=== PATIENT | female | born 1985 | race Caucasian/White ===

== ENCOUNTER → 2020-03-04 | Outpatient (CLI) | payer BC ==
[~2020-03-04] VITALS: Ht 175.3 cm; Wt 69.7 kg
[~2020-03-04] MED LIST: NABUMETONE 500500 M2 PO; NAPROXEN500 MG PO
--- NOTE | ~2020-03-04 | HPC ---
[facility] [place] [address] PAIN MANAGEMENT CONSULTATION Name: LAURA MANRIQUEZ Room #: REG Otto ..#: [id number] Admission: 03/04/20 Attend Phys: Yehuda Garcia DO Discharge: Date of : 85 Report #: [id number] THIS REPORT FOR: cc: BRODY GOMEZ Physician not on staff Yehuda Garcia DO ~ DATE OF SERVICE: 03/04/2020 REFERRING PHYSICIAN: Geovanny Ballesteros MD CHIEF COMPLAINT: Axial back pain. HISTORY OF PRESENT ILLNESS: As you know, the patient is a very pleasant 34-year-old female who reports longstanding history of low back pain and upper buttock pain. She states that her pain intensified in 08/2018, but has been present prior to that timeframe. She trialled conservative treatment, but unfortunately, her symptoms did not show improvement. She sought evaluation through her primary care team, which ultimately sent the patient for imaging. After imaging was completed, the patient was then sent to see Neurosurgery to discuss options for surgical therapy. The patient was seen by Dr. Geovanny Ballesteros on 01/22/2020, diagnosed with lumbar spondylosis and facet arthropathy pain. She was then subsequently referred to our clinic to discuss interventional treatments and options for therapy to address facet arthropathy pain. The patient indicates her pain is continuous, steady and constant, describes the pain as aching and sharp. She places current pain score at 4/10, daily average of 6/10, worst pain has been is 8/10. The patient states that sitting, standing for any length of time greater than 20 minutes exacerbates symptoms, heat and cold compresses improve pain. She has been referred to our service to discuss treatment options for facet arthropathy pain. PAST MEDICAL HISTORY: Chronic back pain. PAST SURGICAL HISTORY: Tonsillectomy. SOCIAL HISTORY: The patient denies tobacco, IV or illicit drug use. Admits to approximately 1 alcoholic beverage per week. 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 She is not receiving disability income. She is not on disability benefits and she is not in litigation in regard to pain. She is unaccompanied at today's visit. REVIEW OF SYSTEMS: Positive for wearing corrective eyewear, frequent urination, nocturia, painful menses, chronic low back pain. All other review of systems negative per 12-point review of systems other than those listed in history of present illness. [facility] [address] [place] [address] PAIN MANAGEMENT CONSULTATION Name: LAURA MANRIQUEZ Room #: REG CL Kori.#: [id number] Admission: 03/04/20 Attend Phys: Yehuda Garcia DO Discharge: Date of : 85 Report #: [id number] ALLERGIES: No known drug allergies. CURRENT MEDICATIONS: Naproxen 500 mg dose p.r.n. cramping. IMAGING: MRI of the lumbar spine obtained 10/04/2018 shows mild disk space narrowing at L4-L5 and L5-S1 consistent with her age. There are normal appearing SI joints. There is mild degenerative spondylosis within the lumbar region. PHYSICAL EXAMINATION: VITAL SIGNS: Blood pressure 106/78, pulse 87, respiratory rate 18 and unlabored. The patient is 97% on room air. Height 5 feet 9 inches tall, weight 153.6 pounds and BMI calculated 22.7. GENERAL: Well-developed, well-nourished, well-hydrated 34-year-old female appearing her stated age. She is in no acute distress, awake, alert and oriented x 3. Current pain score 6/10. HEENT: Normocephalic, atraumatic. Pupils are equal and round. NEUROLOGIC: Speech is fluent. The patient is wearing a mask in compliance with COVID-19 regulations. LUNGS: Clear, no wheeze, rhonchi or rales. CARDIOVASCULAR: Regular. No appreciable gallop, no rub. ABDOMEN: Soft, nontender, nondistended, normal active bowel sounds. EXTREMITIES: Show no clubbing, no cyanosis, no edema. MUSCULOSKELETAL: The patient has palpatory tenderness over the paraspinal musculature of lower lumbar spine. No spinous process tenderness. Seated straight leg raising negative. Supine straight leg raising negative. Ramone's test is negative. Modified Gaenslen's positive for axial low back pain without radiation of symptoms. Lumbar provocation testing including extension, rotation and to a slight degree lateral flexion cause intensification of pain. Slight forward flexed lumbar spine improve symptoms mildly. Deep tendon reflexes equal and symmetrical at patella and Achilles, 2+/4. Muscle bulk and tone is equal and symmetrical in lower extremities. Ankle clonus negative. Babinski is negative. ASSESSMENT: 1. Lumbosacral spondylosis without radiculopathy. 2. Mild facet arthropathy of the lumbar spine. 3. Chronic low back pain. PLAN: 1. Based on today's physical exam and history the patient has provided, the description the patient uses in regard to pain as well as location of symptoms and those factors that probably gait pain, likely source of the patient's symptoms is the facet joints of the lumbar region. We discussed with the patient treatment options for mild facet arthropathy, the following was [facility] [address] [place] [address] PAIN MANAGEMENT CONSULTATION Name: LAURA MANRIQUEZ Room #: REG [facility]#: [id number] Admission: 03/04/20 Attend Phys: Yehuda Garcia DO Discharge: Date of : 85 Report #: [id number] discussed with the patient today after reviewing her imaging with her in its entirety. I was pleased to advise the patient only mild facet changes were noted. The mild changes in the disks were not contributory to her symptoms. After this discussion, we discussed treatment options. We discussed physical therapy, stretching exercises and core strengthening techniques as a treatment option. We discussed medication management, adjusting for a more effective nonsteroidal anti-inflammatory to take on initially 3 times a day basis with weaning of the medication once her symptoms do improve. We discussed the requested intra-articular facet injections to treat facet arthropathy pain. We also discussed medial branch nerve blocks and radiofrequency lesioning if all other treatment options are unsuccessful. After reviewing risks and benefits of all proposed treatment options, the patient chose to move forward with intraarticular facet injections. 2. The patient was advised that due to third constitution party payer restrictions, authorization would have to be obtained before the patient could undergo facet injections at the L4-L5 and L5-S1 level. We will begin the authorization process immediately. Once we have this authorization completed, we will contact the patient and have her return to undergo that injection. The patient was advised to make sure that her schedule is cleared from the day of procedure through the next day, so she can rest, relaxation and recover from the procedure itself. We will obtain this authorization as quickly as possible and contact the patient with our progress. 3. We have provided the patient a prescription of nabumetone 500 mg dose for which she is to take 3 times a day with meals. I have given the patient #90 tablets, advised her to take it as directed. She is to discontinue all other nonsteroidal anti-inflammatories in preference of the nabumetone. She will watch for dyspepsia, worsening of blood pressure, lower extremity edema. If she notes any side effects, discontinue immediately, call for further instructions. We will discuss efficacy at followup visit. 4. We wish to thank Dr. Ballesteros for the opportunity to see this patient in consultation. We will keep you apprised of response to treatment as we address mild facet arthropathy, address within the lumbar spine. Again, we wish to thank you for the opportunity to see this patient in consultation. By: [phone] Yehuda Garcia DO /nt
[2020-03-04 12:48] VITALS: BP 106/78
--- NOTE | 2020-03-04 12:50 | NUR ---
Pain Clinic Assessment: 1. History of Osteoarthritis: BACK History of Rheumatoid Arthritis: 2. Height: 5 ft. 9 in. 175.3 cm. Weight: 153.6 lb. oz. 69.672 kg. Patient's BMI: 22.7 3. Vital Signs: BP: 106/78 Pulse: 87 Resp: 18 Temp: 02 Sat: 97 ECG Mon: 4. Pain Intensity: 6 5. Fall Risk: Dizziness: N Needs help standing or walking: N Fallen in the last 3 months: N Fall risk comments: 6. Patient on Blood Thinner: 7. History of Hypertension: N 8. Opioid Therapy greater than 6 weeks: N Opiate Contract Signed: 9. Risk Assessment Tool Provided: 1-LOW RISK 10. Functional Assessment Tool: 11. Recreational Drug Use: Never Drug Type: Tobacco Use: Never Smoker Tobacco Type: Amount or Packs/day: How Many Years: Alcohol Use: Yes Frequency: Monthly Quant: 1
== END ==
LOC: PAIN 06:48
PROVIDERS: ATTEND Anesthesiology Pain Medicine
DX: M47.817 Spondylosis without myelopathy or radiculopathy, lumbosacral region (principal); G89.29 Other chronic pain; Z79.891 Long term (current) use of opiate analgesic

== ENCOUNTER → 2020-04-08 | Outpatient (CLI) | payer OTHER ==
[~2020-04-08] VITALS: Ht 175.3 cm; Wt 70.3 kg
[2020-04-08 11:08] VITALS: BP 108/72
--- NOTE | 2020-04-08 11:24 | NUR ---
Pain Clinic Assessment: 1. History of Osteoarthritis: BACK History of Rheumatoid Arthritis: 2. Height: 5 ft. 9 in. 175.3 cm. Weight: 155.0 lb. oz. 70.308 kg. Patient's BMI: 22.9 3. Vital Signs: BP: 108/72 Pulse: 85 Resp: 14 Temp: 02 Sat: 98 ECG Mon: 4. Pain Intensity: 6 5. Fall Risk: Dizziness: N Needs help standing or walking: N Fallen in the last 3 months: N Fall risk comments: 6. Patient on Blood Thinner: None 7. History of Hypertension: N 8. Opioid Therapy greater than 6 weeks: N Opiate Contract Signed: 9. Risk Assessment Tool Provided: 1-LOW RISK 10. Functional Assessment Tool: 11. Recreational Drug Use: Never Drug Type: Tobacco Use: Never Smoker Tobacco Type: Amount or Packs/day: How Many Years: Alcohol Use: Yes Frequency: Weekly Quant: 1
--- NOTE | 2020-04-15 08:06 | HPC ---
[facility] [place] [address] PAIN MANAGEMENT CONSULTATION Name: LAURA MANRIQUEZ Room #: REG Otto M.R.#: [id number] Admission: 04/08/20 Attend Phys: Yehuda Garcia DO Discharge: Date of : 85 Report #: [id number] THIS REPORT FOR: cc: BRODY GOMEZ Physician not on staff Yehuda Garcia DO ~ CHIEF COMPLAINT: Axial back pain. HISTORY OF PRESENT ILLNESS: As you know, the patient is a very pleasant 34-year-old female with longstanding history of low back pain, upper buttock pain. The pain intensified August 2018. No inciting injury or trauma. She was seen in consultation per the request of Dr. Ballesteros to discuss intra-articular facet injections to address facet arthropathy at L4-L5 and L5-S1, which was mild in nature. We trialled initially conservative treatment utilizing nabumetone, but the patient did not take the medication as she was fearful of the side effects. She continues to take naproxen at home despite the side effects being exactly the same as the nabumetone. She returns today in followup visit reporting a pain score of 6/10 requesting intra-articular facet injections under fluoroscopic guidance. The patient denies any new injury or trauma or any changes in medical history since our last visit. ALLERGIES: No reported drug allergies. CURRENT MEDICATIONS: Naproxen 500 mg 3 times a day. SOCIAL HISTORY: The patient denies tobacco, IV or illicit drug use. Admits to 1 alcoholic beverage per week. 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 IMAGING: No new imaging available. PHYSICAL EXAMINATION: VITAL SIGNS: Blood pressure 108/72, pulse is 85, respiratory rate 14 and unlabored. The patient is 98% on room air. Height 5 feet 9 inches tall, weight 155 pounds, BMI calculated 22.9. GENERAL: Well-developed, well-nourished, well-hydrated 34-year-old female appearing stated age, pain is rated today 6/10. HEENT: Normocephalic, atraumatic. Pupils are round. Extraocular muscles are intact. The patient is wearing a mask in compliance with COVID-19 regulations. EXTREMITIES: Show no clubbing, no cyanosis. No appreciable edema. MUSCULOSKELETAL: Lower extremity strength is symmetrical 5/5, intact to light touch from L1 through S2 dermatomes. Seated straight leg raising negative. Supine straight leg raising negative. Ramone's test negative. Modified Gaenslen's positive for some axial low back pain. Ankle clonus negative. Babinski is negative. Deep tendon reflexes remain symmetrical, 2+/4 at patella and Achilles. [address] [address] PAIN MANAGEMENT CONSULTATION Name: CADELAURA Room #: REG [facility] Kyree#: [id number] Admission: 04/08/20 Attend Phys: Yehuda Garcia DO Discharge: Date of : 85 Report #: [id number] ASSESSMENT: 1. Mild lumbosacral spondylosis without radiculopathy. 2. Mild facet arthropathy of the lumbar spine. 3. Chronic intractable pain. PLAN: 1. The patient returns today in followup visit indicating that she was unwilling to initiate the nabumetone therapy despite the fact that she has been taking naproxen 500 mg up to 3 times a day. She was concerned of the potential side effects with nabumetone. 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 We discussed this with the patient today. I have advised her if she wishes to initiate the therapy, she certainly could. The risks of naproxen are equal to the risks of nabumetone. There is no significant change based on the PDR, which shows exactly the same black box warnings for both medications. She will consider this option. 2. The patient has been consented and we will perform bilateral L4-L5, L5-S1 intra-articular facet injections to address facet arthropathy pain that is related to mild facet arthropathy at these 2 levels. The patient has been advised risks and benefits of this procedure. These risks include but are not necessarily limited to bleeding, bruising, infection, worsening pain, no relief of pain, also risk of temporary or permanent muscle weakness, temporary or permanent nerve damage, possible paralysis and . The patient states understood and wished to proceed. 3. No medication changes made at today's visit. The patient will continue current medical therapy as prior prescribed. 4. We will plan to see the patient back in followup visit on an as needed basis for the next in the series of intra-articular facet injections to address mild facet arthropathy pain. DESCRIPTION OF PROCEDURE: Bilateral L4-L5, L5-S1 intra-articular facet injections under fluoroscopic guidance. This is the first procedure of the first series that the patient is undergoing. After obtaining written consent, the patient was taken back to the fluoroscopy suite and placed in a prone position with a pillow under the abdomen to decrease the lumbar lordosis and to facilitate needle entry into the facet joints. The skin overlying the lumbosacral area was prepped and draped in an aseptic fashion. AP and lateral fluoroscopic imaging was obtained. Optimal position of the fluoroscope occurred when the joint line was first visualized. The facet joints were identified radiographically directed adjacent to the superior articular process of the caudad vertebrae. The skin overlying the target sites of injection was anesthetized using 3 mL of 1% lidocaine. A 22-gauge 3-1/2 inch spinal needle with a bent tip was advanced towards the L4-L5, L5-S1 facet joints on the right and left sides under fluoroscopic [address] [address] PAIN MANAGEMENT CONSULTATION Name: CADELAURA Room #: REG YORDY Adorno#: [id number] Admission: 04/08/20 Attend Phys: Yehuda Garcia DO Discharge: Date of : 85 Report #: [id number] guidance. The firm posterior capsule had its characteristic feel and the needle was advanced a few additional millimeters beyond the joint capsule into the joint space, but not into the articular cartilage. After the joint space was entered and aspiration was negative for heme or CSF, 0.2 mL of Omnipaque was injected demonstrating a characteristic facet arthrogram. After negative aspiration for heme or CSF, 1.5 mL of solution containing 1 mL, 40 mg per mL, 40 mg total triamcinolone and bupivacaine 0.5% was slowly injected at each of 4 facets. The needle was then removed. There were no apparent complications. The patient tolerated the procedure well and was carefully escorted to the recovery room in stable condition. The VAS was 6/10 before the procedure and 1-2/10 ten minutes after the procedure. After meeting discharge criteria, the patient was discharged home. <ELECTRONICALLY SIGNED> By: Yehuda Garcia DO 04/15/20 [id number] Yehuda Garcia DO /nt
== END | disposition home or self-care (01) ==
LOC: PAIN 03-18 09:14
PROVIDERS: ATTEND Anesthesiology Pain Medicine
DX: M47.817 Spondylosis without myelopathy or radiculopathy, lumbosacral region (principal); M47.816 Spondylosis without myelopathy or radiculopathy, lumbar region; G89.29 Other chronic pain; Z98.890 Other specified postprocedural states